=== PATIENT | female | born 1985 | race African-American/Black ===

== ENCOUNTER 2016-09-24 17:43 | Emergency (ER) | payer SELFPAY ==
[2016-09-24 17:52] VITALS: BP 111/61
--- NOTE | 2016-09-24 18:45 | PHYS DOC ---
Past Medical History Past Medical History: No Pertinent History Past Surgical History: No Surgical History Alcohol Use: None Drug Use: None Adult General Chief Complaint Chief Complaint: FOREIGN BODY VAGINA HPI HPI Patient is a 30 year old female presents emergency department stating that she put a tampon dinner earlier this morning. She states that she does not recall taking the tampon out. She states that she does not have a pad in place which usually means that she is taking the tampon out. Patient states that she attempted to fill inside her vaginal area to see if the tampon was still in place and states that she felt as though something was in her vaginal area. She denies any abdominal pain she denies any nausea vomiting. She states that she has not concern for sexual transmitted infections. Review of Systems Review of Systems Constitutional: Denies fever or chills [] Eyes: Denies change in visual acuity, redness, or eye pain [] HENT: Denies nasal congestion or sore throat [] Respiratory: Denies cough or shortness of breath [] Cardiovascular: No additional information not addressed in HPI [] GI: Denies abdominal pain, nausea, vomiting, bloody stools or diarrhea [] : Denies dysuria or hematuria. Patient states that she is here for a possible retained tampon. Musculoskeletal: Denies back pain or joint pain [] Integument: Denies rash or skin lesions [] Neurologic: Denies headache, focal weakness or sensory changes [] Endocrine: Denies polyuria or polydipsia [] Physical Exam Physical Exam Constitutional: Well developed, well nourished, no acute distress, non-toxic appearance. [] HENT: Normocephalic, atraumatic, bilateral external ears normal, oropharynx moist, no oral exudates, nose normal. [] Eyes: PERRLA, EOMI, conjunctiva normal, no discharge. [] Neck: Normal range of motion, no tenderness, supple, no stridor. [] Cardiovascular:Heart rate regular rhythm, no murmur [] Lungs & Thorax: Bilateral breath sounds clear to auscultation [] Skin: Warm, dry, no erythema, no rash. [] Back: No tenderness Extremities: No tenderness, no cyanosis, no clubbing, ROM intact, no edema. [] Neurologic: Alert and oriented X 3, normal motor function, normal sensory function, no focal deficits noted. [] Psychologic: Affect normal, judgement normal, mood normal. [ Vaginal exam: Speculum exam no foreign body noted in the vaginal area. Manual exam: No bilateral adnexal tenderness noted no CMT noted. No foreign body noted. Current Patient Data Vital Signs Vital Signs Date Time Temp Pulse Resp B/P (MAP) Pulse Ox O2 Delivery O2 Flow Rate FiO2 09/24/16 17:52 98.4 68 18 99 Room Air 98.4 EKG EKG [] Radiology/Procedures Radiology/Procedures [] Course & Med Decision Making Course & Med Decision Making Pertinent Labs and Imaging studies reviewed. (See chart for details) Patient is instructed that there was no foreign body noted in the vaginal area. Patient is still concerned that she felt something in the vaginal canal. Reassured patient that no foreign body was noted. Patient will be discharged home in stable condition signs and symptoms to return back to emergency department as been provided. Patient agrees with discharge instructions regimens and follow-up recommendations. [] Dragon Disclaimer Dragon Disclaimer This electronic medical record was generated, in whole or in part, using a voice recognition dictation system. Departure Departure Impression: Primary Impression: Foreign body in vagina Disposition: HOME, SELF-CARE Condition: STABLE Referrals: NO PCP (PCP) Patient Instructions: Vaginal Foreign Body, [id number] Additional Instructions: Your exam is been completed with no foreign bodies noted in the vaginal area. 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 Return back to emergency department for signs and symptoms of become worse. RAMÓN ROMEO [employer] ENG[employer]ER Sep 24, 2016 18:45
== END 2016-09-24 18:49 | disposition home or self-care (01) ==
LOC: ER 17:43
DX: T19.2XXA Foreign body in vulva and vagina, initial encounter (principal); X58.XXXA Exposure to other specified factors, initial encounter; Y93.89 Activity, other specified; Y92.89 Other specified places as the place of occurrence of the external cause; Y99.8 Other external cause status
CPT/HCPCS: 99281